=== PATIENT | female | born 1990 | race Caucasian/White ===

== ENCOUNTER → 2020-01-30 14:14 | Outpatient (BNVA) | payer OTHER, SELFPAY | PROVIDERS: Visit Provider Physician Assistant | DX: E66.01 Morbid (severe) obesity due to excess calories (principal); Z68.43 Body mass index [BMI] 50.0-59.9, adult; F41.8 Other specified anxiety disorders; Z98.84 Bariatric surgery status | CPT/HCPCS: 99213 ==

== ENCOUNTER 2021-10-15 14:35 | Outpatient (REF) | payer OTHER, SELFPAY ==
--- NOTE | ~2021-10-15 | XR_ITS ---
EXAMINATION: XR LUMBOSACRAL SPINE CLINICAL INFORMATION: Low back pain. COMPARISON: None TECHNIQUE: AP and lateral views of the lumbar spine with coned down AP and lateral spot views of the lumbosacral junction. FINDINGS: 5 non-rib bearing lumbar type vertebral bodies are seen. Mild convex left lumbar scoliosis with apex at L3. Normal sagittal alignment. There is likely facet arthropathy at L4-L5 and especially L5-S1. No joe or retrolisthesis. XR/XR lumbar spine 2-3V IMPRESSION: Mild convex left lumbar scoliosis with apex at L3. This could be positional or due to muscle spasm. Lower lumbar facet arthropathy.
== END 2021-10-15 14:36 | disposition home or self-care (01) ==
LOC: HO.HMGCX 14:35
PROVIDERS: PCP Internal Medicine; Visit Provider Internal Medicine
DX: M54.50 Low back pain, unspecified (principal)
CPT/HCPCS: 72100

== ENCOUNTER → 2022-03-02 14:13 | Outpatient (BNVA) | payer OTHER, SELFPAY | PROVIDERS: PCP Internal Medicine; Visit Provider Advanced Practice Midwife | DX: N92.6 Irregular menstruation, unspecified (principal); Z20.2 Contact with and (suspected) exposure to infections with a predominantly sexual mode of transmission | CPT/HCPCS: 99202 ==

== ENCOUNTER 2022-11-30 09:41 | Outpatient (AMB) | payer OTHER, SELFPAY ==
[2022-11-30 10:32] VITALS: BP 120/62; BMI 57.8
--- NOTE | 2022-11-30 10:32 | MHC.OFFVIS ---
Intake Vital Signs 11/30/22 10:32 Height 5 ft 4 in Weight 337 lb BMI 57.8 BP 120/62 Intake Visit Reasons: Irregular menses Intake Note: The patient agreed to use of a vice president medical affairs during this encounter. Scribed for FABI Cox by Larissa Yusuf vice president medical affairs, on 11/30/2022 at 10:50 am EST. Director Part Required: No Information Interpreted: non-clinical & clinical Pediatric Immunologist: Pediatric Immunologist Present Accompanied by: Mother Allergies amoxicillin [AMOXICILLIN] Allergy (Unknown, Unverified 11/30/22 10:33) ABD PAIN carbamazepine [From TEGRETOL] Allergy (Unknown, Unverified 11/30/22 10:33) RASH imipramine [IMIPRAMINE] Allergy (Unknown, Unverified 11/30/22 10:33) SEIZURE, sz Is last menstrual period known: Yes HPI HPI Comments History of Present Illness Details She is here for irregular menses with her mom and her service dog. She reports spotting in past months, with pelvic pain for past couple of months. Has not had normal or regular menses since age 16. Currently not sexually active in the last 2 years. She denies any contraindications to control such as: migraines with aura, history of DVT or pulmonary emboli, high blood pressure, liver disease, thrombolic disorders, Lupus, +LORETTA, or smoking. Denies hirsutism; admits occasional acne. Hx of seizures; last was 2006. Her mother asked if any medication (Provera) could cause a seizure because she believes the Imipramine caused seizures in the past. Labs and work up not completed from last fall. [facility] Medical History Annual physical exam Anxiety Depression with anxiety Dysmenorrhea Lower back pain Morbid obesity Obesity Rectal bleeding Seizures Surgical History S/p bilateral myringotomy with tube placement S/P laparoscopic sleeve gastrectomy Family History Father Hypertension Diabetes Heart failure Mother Hypertension Maternal Grandmother Cancer of kidney Maternal Grandfather Hypertension Social History Housing: House Patient Tobacco Use Status: Never used Tobacco e-Cigarette/Vaping Use: Never Used Second Hand Smoke Exposure: No service: No Current occupational status: unemployed Current occupational exposures/hazards: No Cognitive needs: No Hearing needs: No Vision needs: No Physical Exam Vital Signs: Last Vital Signs BP 120/62 11/30/22 10:32 BMI result Body Mass Index 57.8 Const General: cooperative, healthy appearing, comfortable, no acute distress, well developed, alert, awake and anxious Other: exam limited due to body habitus, anxious, tense with exam. Utilized breathing and relaxation skills with exam. General: Yes bladder normal to palpation External Female Exam: normal external appearance and normal appearance of the urethra Speculum Exam - Vagina: normal appearance of the vagina, normal palpation and normal vaginal discharge Speculum Exam - Cervix: normal appearance of the cervix Bimanual exam- vagina & uterus: normal bimanual exam, normal palpation and bladder normal to palpation Bimanual Exam- Adnexa, other: no masses Psych Other: anxious Appearance: well kempt Affect: normal affect Attitude: cooperative Thought process: Normal thought process present Assessment & Plan Assessment & Plan (1) Irregular menses: Code(s): N92.6 - Irregular menstruation, unspecified Plan: Discussed: Advised to complete labs/US for workup. Weight can contribute to hormonal imbalance and a irregular cycling. Encouraged patient to sign up for patient portal. All of her questions and concerns were addressed to the best of my ability and shared decision making. She is agreeable to plan of care. (2) Pelvic pain: Code(s): R10.2 - Pelvic and perineal pain Plan: Pelvic US and lab work ordered. Follow up for results in person. BV testing and GC/CT panel done today. Await results and treat accordingly. (3) control counseling: Code(s): Z30.09 - Encounter for other general counseling and advice on contraception Plan: Consider Provera/BC for cycle for control will need a consult visit for medication use additionally. Provera is used to protect the endometrial lining and shed the lining, if not alternatively using control. (4) Anxiety: Comment: Follows up with a therapist. Code(s): F41.9 - Anxiety disorder, unspecified Orders: Orders Bacterial Vaginosis Panel Today N92.6 - Irregular menstruation, unspecified, R10.2 - Pelvic and perineal pain CT NG by PCR Today N92.6 - Irregular menstruation, unspecified, R10.2 - Pelvic and perineal pain Coding Level of Care Code Est Pt Level 4 (21932) Diagnoses Irregular menses N92.6 Pelvic pain R10.2 control counseling Z30.09 Anxiety F41.9
== END 2022-11-30 12:03 | disposition home or self-care (01) ==
LOC: HO.HWS 09:41
PROVIDERS: PCP Internal Medicine; Visit Provider Advanced Practice Midwife
DX: N92.6 Irregular menstruation, unspecified (principal); R10.2 Pelvic and perineal pain; Z30.09 Encounter for other general counseling and advice on contraception; F41.9 Anxiety disorder, unspecified
CPT/HCPCS: 99214

== ENCOUNTER 2022-11-30 09:41 | Outpatient (REF) | payer OTHER, SELFPAY | END 2022-11-30 09:42 | disposition home or self-care (01) | LOC: HO.LAB 09:41 | PROVIDERS: PCP Internal Medicine; Visit Provider Advanced Practice Midwife | DX: N92.6 Irregular menstruation, unspecified (principal); R10.2 Pelvic and perineal pain; F41.9 Anxiety disorder, unspecified | CPT/HCPCS: 99212 ==

== ENCOUNTER 2022-11-30 11:04 | Outpatient (REF) | payer OTHER, SELFPAY | END 2022-11-30 11:05 | disposition home or self-care (01) | LOC: HO.LNP 11:04 | PROVIDERS: Visit Provider Advanced Practice Midwife | DX: Z13.89 Encounter for screening for other disorder (principal) ==

== ENCOUNTER 2022-11-30 11:42 | Outpatient (REF) | payer OTHER, SELFPAY ==
[2022-12-01 09:46] LABS: CT PCR NOT DETECTED (Not Detect.); NG PCR NOT DETECTED (Not Detect.)
[2022-12-01 11:45] LABS: BV Int Neg Control Negative (Negative); BV Int Pos Control Positive (Positive)
== END 2022-11-30 11:43 | disposition home or self-care (01) ==
LOC: HO.LAB 11:42
PROVIDERS: Advanced Practice Midwife; PCP Internal Medicine; Visit Provider Internal Medicine
DX: N92.6 Irregular menstruation, unspecified (principal); R10.2 Pelvic and perineal pain
CPT/HCPCS: 0353U; 87480; 87510; 87660

== ENCOUNTER 2023-01-02 14:10 | Outpatient (REF) | payer OTHER, SELFPAY ==
--- NOTE | ~2023-01-02 | US_ITS ---
EXAMINATION: US PELVIS CLINICAL INFORMATION: Irregular menses; the last menstrual period is uncertain. COMPARISON: None available. TECHNIQUE: Ultrasound of the pelvis is performed using both transabdominal and transvaginal transducers along with Doppler. Transvaginal imaging is performed due to inadequate visualization transabdominally. FINDINGS: Uterus: The uterus is anteverted and measures 6.5 x 3.2 x 3.9 cm. Nabothian cysts are seen within the cervix. The double wall endometrial thickness is 1.1 mm. The endometrial stripe is heterogeneous in echotexture. The uterus is smooth in contour and has normal myometrial echogenicity. No visible fibroid. Adnexa: Both ovaries are visualized. There is normal color flow to the adnexa. There is no ovarian torsion. There is no pelvic ascites or fluid collection. Right ovary measures 2.6 x 2.0 x 2.6 cm, volume 6.9 mL. Left ovary measures 3.4 x 2.5 x 3.0 cm, volume 13.3 mL. The left ovary contains a 1.2 cm dominant, simple follicle, which requires no imaging follow-up. US/US pelvic and transvaginal IMPRESSION: 1. Nabothian cysts are seen within the cervix. 2. Otherwise, unremarkable examination.
== END 2023-01-02 14:11 | disposition home or self-care (01) ==
LOC: HO.US 14:10
PROVIDERS: PCP Internal Medicine; Visit Provider Advanced Practice Midwife
DX: N92.6 Irregular menstruation, unspecified (principal)
CPT/HCPCS: 76830; 76856

== ENCOUNTER 2023-01-15 12:25 | Outpatient (REF) | payer OTHER, SELFPAY ==
[2023-01-15 14:21] LABS: Thyroid Stimulating Hormone 1.11 uIU/mL (0.32-4.0)
[2023-01-16 03:42] LABS: Syphilis Screen Nonreactive (Nonreactive)
[2023-01-16 05:33] LABS: HBc Num1 0.08 S/CO (0.00-0.79); HIV AB/AG Nonreactive (Nonreactive); HIV Num 1 0.09 S/CO (0.00-0.99); Hepatitis B Core Antibody Nonreactive (Nonreactive); ~HepC Num1 0.04 S/CO (0.00-0.79); ~Hepatitis C Antibody Nonreactive (Nonreactive)
[2023-01-17 07:38] LABS: DHEA Sulfate 206 mcg/dL (14-349); Prolactin 11.5 ng/mL
[2023-01-19 19:33] LABS: Testosterone, Free 2.8 pg/mL (0.1-6.4); Testosterone, Total 20 ng/dL (2-45)
== END 2023-01-15 12:26 | disposition home or self-care (01) ==
LOC: HO.LAB 12:25
PROVIDERS: PCP Internal Medicine; Visit Provider Advanced Practice Midwife
DX: Z11.4 Encounter for screening for human immunodeficiency virus [HIV] (principal); Z20.2 Contact with and (suspected) exposure to infections with a predominantly sexual mode of transmission; N92.6 Irregular menstruation, unspecified
CPT/HCPCS: 36415; 82627; 83498; 84146; 84402; 84403; 84443; 86704; 86780; 86803; 87389

== ENCOUNTER 2023-02-02 11:38 | Outpatient (AMB) | payer OTHER, SELFPAY ==
--- NOTE | 2023-02-02 11:38 | MHC.OFFVIS ---
Intake Intake Visit Reasons: Tv ultra sound /labs follow up Intake Note: The patient agreed to use of a medical claims representative during this encounter. Scribed for FABI Cox by Larissa Yusuf medical claims representative, on 02/02/2023 EST. Allergies amoxicillin [AMOXICILLIN] Allergy (Unknown, Unverified 02/02/23 11:39) ABD PAIN carbamazepine [From TEGRETOL] Allergy (Unknown, Unverified 02/02/23 11:39) RASH imipramine [IMIPRAMINE] Allergy (Unknown, Unverified 02/02/23 11:39) SEIZURE, sz HPI HPI Comments History of Present Illness Details Telehealth visit 12:28 pm -12:49 pm. Phone Call due to Covid-19 Pandemic. Pt denied video. She presents via phone to discuss PCOS lab work due to irregular menses. Reports in the past visit she had sporadic irregular menses which can vary from 1-3 months and might have a menses lasting 1-2 days. Her last menses was early November 2022. Currently not sexually active; denies any risk to . Hx of extreme anxiety disorder which affects her ability to go outside often and is limited to outside exercise options. She takes her dog outside in the backyard but only for a couple of minutes at a time then comes back inside because she is afraid to interact with the neighbors. Reports she is not eating healthy and her goal is to lose weight. Reports she is currently struggling emotionally, has the same therapist since age 14. She denies any contraindications to control such as: migraines with aura, history of DVT or pulmonary emboli, high blood pressure, liver disease, thrombolic disorders, Lupus, +LORETTA, or smoking. [facility] Medical History Adult BMI 60.0-69.9 kg/sq m Annual physical exam Anxiety Lower back pain Dysmenorrhea Rectal bleeding Obesity Morbid obesity Depression with anxiety Seizures Surgical History S/p bilateral myringotomy with tube placement S/P laparoscopic sleeve gastrectomy Family History Father Hypertension Diabetes Heart failure Mother Hypertension Maternal Grandmother Cancer of kidney Maternal Grandfather Hypertension Social History Housing: House Patient Tobacco Use Status: Never used Tobacco e-Cigarette/Vaping Use: Never Used Second Hand Smoke Exposure: No service: No Current occupational status: unemployed Current occupational exposures/hazards: No Cognitive needs: No Hearing needs: No Vision needs: No Physical Exam Const General: cooperative, healthy appearing, comfortable, no acute distress, well developed, alert and awake Assessment & Plan Assessment & Plan (1) Encounter to discuss test results: Code(s): Z71.2 - Person consulting for explanation of examination or test findings Plan: Discussed: PCOS lab work; normal. All of her questions and concerns were addressed to the best of my ability and shared decision making. She is agreeable to plan of care. (2) Adult BMI 60.0-69.9 kg/sq m: Code(s): Z68.44 - Body mass index [BMI] 60.0-69.9, adult Plan: Discussed role of weight and effects on hormones and cycle control. Benefits of weight loss, in small strides. Maintaining a healthy lifestyle, including a well balanced diet, and routine exercise. Encouraged to take her time getting to her healthy weight goals and to go outdoors, or outside activities for 2 hours/day, when she is able to do so. Suggested indoor exercises: including chair-yoga exercises, floor routines on a mat, take breaks and move around the house often. (3) Anxiety: Comment: Follows up with a therapist. Code(s): F41.9 - Anxiety disorder, unspecified Plan: Advised to try not to stress herself. Recommend fresh air for mental wellness; discussed benefits. (4) control counseling: Code(s): Z30.09 - Encounter for other general counseling and advice on contraception Plan: Reviewed use, side effects and warnings, including ACHES. Use of provera, reason, risks/benefits-protect endometrium, correction prevention of possible abnormal cellular changes that can lead to precancer/cancer development with chronic irregular/anovulatory cycles. Monitor her bleeding and contact the office with any concerns. She was instructed to go to ER if she develops loss of vision, severe headache that does not resolve, chest pain, difficulty breathing, abdominal pain, or pain or tenderness in extremity. Call the office with any concerns. Rx for Provera (10 mg for 10 days) sent to pharmacy. RTO med check in 6 months-pt. preferred timeframe, encouraged pap and annual to be updated next years. Medications: New medroxyprogesterone (Provera) may repeat use if no menses in 1-3 months 10 mg PO DAILY 60 tabs 0RF 10 days Telehealth Telehealth Location of provider rendering services: practice address Location of patient: address on file Patient Identification confirmed using: Name, : Yes Telehealth method: voice only Patient verbally consented to treatment: Yes Patient verbally consented to billing insurance company: Yes Patient informed of any privacy concerns related to visit: Yes Coding Level of Care Code Tele Est Pt Level 3 (23401) Diagnoses Encounter to discuss test results Z71.2 Adult BMI 60.0-69.9 kg/sq m Z68.44 Anxiety F41.9 control counseling Z30.09 Time Spent (min) 21 Comment USE code [id number] for audio visit
== END 2023-02-02 15:06 | disposition home or self-care (01) ==
LOC: HO.HWS 11:38
PROVIDERS: PCP Internal Medicine; Visit Provider Advanced Practice Midwife
DX: Z71.2 Person consulting for explanation of examination or test findings (principal); Z68.44 Body mass index [BMI] 60.0-69.9, adult; F41.9 Anxiety disorder, unspecified; Z30.09 Encounter for other general counseling and advice on contraception
CPT/HCPCS: 99213

== ENCOUNTER → 2023-02-02 11:38 | Outpatient (BNVA) | payer OTHER, SELFPAY | PROVIDERS: PCP Internal Medicine; Visit Provider Advanced Practice Midwife ==

== ENCOUNTER 2023-06-15 10:30 | Outpatient (AMB) | payer OTHER, SELFPAY ==
--- NOTE | 2023-06-15 10:31 | A.OFFVIS_ITS ---
Intake Intake Visit Reasons: discuss concerns and next steps Geographic Information System Analyst Required: No Information Interpreted: non-clinical & clinical Allergies amoxicillin [AMOXICILLIN] Allergy (Unknown, Unverified 06/15/23 10:32) ABD PAIN carbamazepine [From TEGRETOL] Allergy (Unknown, Unverified 06/15/23 10:32) RASH imipramine [IMIPRAMINE] Allergy (Unknown, Unverified 06/15/23 10:32) SEIZURE, sz HPI HPI Comments History of Present Illness Details [facility] visit 10:59-11:10. Phone call due to Covid 19 Pandemic. I spent 11 minutes speaking with the patient on the phone plus an additional 5 minutes reviewing the chart and 5 minutes updating the medical record for a total of 21minutes. Patient had declined of video chat and only desired a phone call. Patient presents via phone to discuss: Patient wants to discuss her concerns in the next step in her care. Last seen January 2023 is a history of PCOS and irregular menses, at that visit she was given intermittent progesterone for management and was advised a six-month follow-up recheck and Pap. She is unable to complete the Pap smear due to severe exam anxiety. Last Pap 2018. Patient does not remember her last menses, notes in January document it was in November 2022. She is not sexually active. She reports not taking any Provera at her last visit due to her worries about a side effects that could lead to complications such as visual loss. 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 She is interested in using something but is unable to move forward at this time with a plan to treat her amenorrhea. She reports struggling to lose weight she has in a very hard situation at her home with a toxic environment that she can not change. She does have a therapist she can talk to. She admits struggling with weight loss and feels it is hard to do anything. [facility] Medical History Adult BMI 60.0-69.9 kg/sq m Annual physical exam Anxiety Lower back pain Dysmenorrhea Rectal bleeding Obesity Morbid obesity Depression with anxiety Seizures Surgical History S/p bilateral myringotomy with tube placement S/P laparoscopic sleeve gastrectomy Family History Father Hypertension Diabetes Heart failure Mother Hypertension Maternal Grandmother Cancer of kidney Maternal Grandfather Hypertension Social History Housing: House Patient Tobacco Use Status: Never used Tobacco e-Cigarette/Vaping Use: Never Used Second Hand Smoke Exposure: No service: No Current occupational status: unemployed Current occupational exposures/hazards: No Cognitive needs: No Hearing needs: No Vision needs: No Assessment & Plan Assessment & Plan (1) Morbid obesity: Code(s): E66.01 - Morbid (severe) obesity due to excess calories (2) Amenorrhea: Code(s): N91.2 - Amenorrhea, unspecified (3) PCOS (polycystic ovarian syndrome): Code(s): E28.2 - Polycystic ovarian syndrome Plan Discussed: Concerns for a long history of irregular cycle pattern leading to amenorrhea, risk of anovulatory cycles overall in the long run can lead to abnormal changes in the uterine lining which can lead to uterine atypia and possible uterine cancer. Hormones can be protected to avoid this. Options to include control or intermittent use of progesterone, incl: implant in the uterus, or arm. Given physical exam is difficult, that is not likely not the best option for an IUD. Rx changed to intermittant Prometrium and shortened the dose length, possibly that would be a more comfortable option for usage of hormone. Encouraged to continue with talk therapy. Advised to follow up for an annual exam in person. All of her questions and concerns were addressed to the best of my ability and shared decision making. She was given the opportunity to ask questions and to discuss the plan. She is agreeable to consider her options. This note is constructed using voice recognition software. While every effort has been made to ensure accuracy, sunglass clip attacher errors may have been included. Medications: New progesterone micronized (Prometrium) repeat if no menses in 2-3 months 200 mg PO BEDTIME 5 days 5 caps 5RF Discontinued medroxyprogesterone (Provera) may repeat use if no menses in 1-3 months Discontinued Reason: Duplicate 10 mg PO DAILY 10 days 60 tabs 0RF Telehealth Telehealth Location of provider rendering services: practice address Location of patient: address on file Patient Identification confirmed using: Name, : Yes Telehealth method: voice only Patient verbally consented to treatment: Yes Patient verbally consented to billing insurance company: Yes Patient informed of any privacy concerns related to visit: Yes Coding Level of Care Code Tele Est Pt Level 3 (19472) Diagnoses Morbid obesity E66.01 Amenorrhea N91.2 PCOS (polycystic ovarian syndrome) E28.2
== END 2023-06-15 11:41 | disposition home or self-care (01) ==
LOC: HO.HWS 10:30
PROVIDERS: PCP Internal Medicine; Visit Provider Advanced Practice Midwife
DX: E28.2 Polycystic ovarian syndrome (principal); E66.01 Morbid (severe) obesity due to excess calories
CPT/HCPCS: 99213

== ENCOUNTER → 2023-06-15 10:30 | Outpatient (BNVA) | payer OTHER, SELFPAY | PROVIDERS: PCP Internal Medicine; Visit Provider Advanced Practice Midwife ==

== ENCOUNTER 2024-01-01 11:31 | Outpatient (AMB) | payer OTHER, SELFPAY ==
--- NOTE | 2024-01-01 11:35 | A.OFFVIS_ITS ---
VS Expanded 01/01/24 11:44 Height 5 ft 4 in Weight 374 lb BMI 64.2 Intake Visit Reasons: (TV) PO LSG 06/19/18 Allergies amoxicillin [AMOXICILLIN] Allergy (Unknown, Unverified 06/15/23 10:32) ABD PAIN carbamazepine [From TEGRETOL] Allergy (Unknown, Unverified 06/15/23 10:32) RASH imipramine [IMIPRAMINE] Allergy (Unknown, Unverified 06/15/23 10:32) SEIZURE, sz HPI Comments Details: 33yo female s/p LSG 06/19/[address] Espinoza. Has not been seen since 01/30/2020 at which time weight/BMI was 292/50.9. Pt reports falling off due to serious life events , spiraling. Used food as a coping mechanism. Still struggling with consistency, cravings, eating out of boredom/loneliness. Sees a therapist regularly. Uses [employer]. Exercise- bought a [employer], does not feel comfortable going to a gym, has some exercise equipment at a friend's house [facility] Medical History Adult BMI 60.0-69.9 kg/sq m Annual physical exam Anxiety Lower back pain Dysmenorrhea Rectal bleeding Obesity Morbid obesity Depression with anxiety Seizures Surgical History S/p bilateral myringotomy with tube placement S/P laparoscopic sleeve gastrectomy Family History Father Hypertension Diabetes Heart failure Mother Hypertension Maternal Grandmother Cancer of kidney Maternal Grandfather Hypertension Social History Housing: House Patient Tobacco Use Status: Never used Tobacco e-Cigarette/Vaping Use: Never Used Second Hand Smoke Exposure: No service: No Current occupational status: unemployed Current occupational exposures/hazards: No Cognitive needs: No Hearing needs: No Vision needs: No Telehealth Telehealth Telehealth Platform: Telephone Location of provider rendering services: other Location of patient: address on file Patient Identification confirmed using: Name, : Yes Telehealth method: voice only Patient verbally consented to treatment: Yes Patient verbally consented to billing insurance company: Yes Patient informed of any privacy concerns related to visit: Yes Minutes spent on Phone/Video with Pt.: 18 Assessment & Plan Assessment & Plan (1) Morbid obesity: Code(s): E66.01 - Morbid (severe) obesity due to excess calories Category: Medical (2) History of sleeve gastrectomy: Code(s): Z90.3 - Acquired absence of stomach [part of] Category: Surgical Plan Meal plan to include 3 [employer]life shakes, 1 meal protein/veg 8f/8f and Chinese yogurt. Discussed taking 2 hours to finish shakes. She declines BH appt at this time. Will work on restarting exercise, goal 30min/day 5x/week for now. Sent home video workout options. RTC 6 weeks, pt encouraged to text me weekly with weight updates and with any questions or concerns. I spent a total of 30 minutes reviewing/updating records, examining the patient and counseling the patient on weight management as detailed above.
[2024-01-01 11:44] VITALS: BMI 64.2
== END 2024-01-01 12:09 | disposition home or self-care (01) ==
LOC: HO.HBS 11:32
PROVIDERS: PCP Internal Medicine; Visit Provider Physician Assistant Surgical
DX: E66.01 Morbid (severe) obesity due to excess calories (principal); Z90.3 Acquired absence of stomach [part of]
CPT/HCPCS: 99214

== ENCOUNTER → 2024-01-01 11:31 | Outpatient (BNVA) | payer OTHER, SELFPAY | PROVIDERS: PCP Internal Medicine; Visit Provider Physician Assistant Surgical ==

== ENCOUNTER 2024-02-06 11:07 | Outpatient (AMB) | payer OTHER, SELFPAY ==
--- NOTE | 2024-02-06 11:05 | MHC.OFFVISWM ---
VS Expanded 02/06/24 11:08 Height 5 ft 4 in Weight 357 lb BMI 61.3 Intake Visit Reasons: TELEPHONE PO LSG 06/19/18 Allergies amoxicillin [AMOXICILLIN] Allergy (Unknown, Unverified 06/15/23 10:32) ABD PAIN carbamazepine [From TEGRETOL] Allergy (Unknown, Unverified 06/15/23 10:32) RASH imipramine [IMIPRAMINE] Allergy (Unknown, Unverified 06/15/23 10:32) SEIZURE, sz Medication List - Last Reconciled 02/06/24 by REED Govea progesterone micronized (Prometrium) 200 mg PO BEDTIME 5 days HPI Comments Details: This?is a?33?yo female who is s/p LSG 06/19/2018. Weight at last visit on 01/01/2024 was 374 pounds with a BMI of 64.2, weight today is 357 pounds, representing a 18 pound weight loss with a BMI today of 61.3.? No complaints of nausea, emesis, abdominal pain or reflux, or constipation. Pt reports difficulty with transportation/no vehicle, has been sick with a cold, family friend with health issues. Has good days and bad days with meal plan. Sometimes doesn't eat all day because not thinking about it. Did get a new van over the weekend. Present meal plan includes: 3 [employer]life shakes, 1 meal protein/veg 8f/8f and Malagasy yogurt Exercise routine includes: 30min/day 5x/week encouraged at last visit [facility] Medical History Adult BMI 60.0-69.9 kg/sq m Annual physical exam Anxiety Lower back pain Dysmenorrhea Rectal bleeding Obesity Morbid obesity Depression with anxiety Seizures Surgical History S/p bilateral myringotomy with tube placement S/P laparoscopic sleeve gastrectomy Family History Father Hypertension Diabetes Heart failure Mother Hypertension Maternal Grandmother Cancer of kidney Maternal Grandfather Hypertension Social History Housing: House Patient Tobacco Use Status: Never used Tobacco e-Cigarette/Vaping Use: Never Used Second Hand Smoke Exposure: No service: No Current occupational status: unemployed Current occupational exposures/hazards: No Cognitive needs: No Hearing needs: No Vision needs: No Telehealth Telehealth Telehealth Platform: Telephone Location of provider rendering services: other Location of patient: address on file Patient Identification confirmed using: Name, : Yes Telehealth method: voice only Patient verbally consented to treatment: Yes Patient verbally consented to billing insurance company: Yes Patient informed of any privacy concerns related to visit: Yes Minutes spent on Phone/Video with Pt.: 14 Assessment & Plan Assessment & Plan (1) History of sleeve gastrectomy: Code(s): Z90.3 - Acquired absence of stomach [part of] Category: Surgical (2) Adult BMI 60.0-69.9 kg/sq m: Code(s): Z68.44 - Body mass index [BMI] 60.0-69.9, adult Category: Medical Plan Pt doing very well on current meal plan, congratulated her on her progress despite many life stressors. Pt sounds more upbeat today compared to last visit as well. She will continue same meal plan. Will order labs at next visit. Encouraged her to reach out between appots with any questions. RTC 6w phone appt. I spent a total of 30 minutes reviewing/updating records, examining the patient and counseling the patient on weight management as detailed above.
[2024-02-06 11:08] VITALS: BMI 61.3
== END 2024-02-06 11:29 | disposition home or self-care (01) ==
LOC: HO.HBS 11:07
PROVIDERS: PCP Internal Medicine; Visit Provider Physician Assistant Surgical
DX: E66.813 Obesity, class 3 (principal); Z68.44 Body mass index [BMI] 60.0-69.9, adult; Z90.3 Acquired absence of stomach [part of]; Z98.84 Bariatric surgery status
CPT/HCPCS: 98967

== ENCOUNTER → 2024-02-06 11:07 | Outpatient (BNVA) | payer OTHER, SELFPAY | PROVIDERS: PCP Internal Medicine; Visit Provider Physician Assistant Surgical ==

== ENCOUNTER 2024-03-05 12:28 | Outpatient (AMB) | payer OTHER, SELFPAY ==
--- NOTE | 2024-03-05 11:58 | MHC.OFFVISWM ---
VS Expanded 03/05/24 12:02 Height 5 ft 4 in Weight 367 lb BMI 63.0 Intake Visit Reasons: TELEPHONE PO LSG 06/19/18 Allergies amoxicillin [AMOXICILLIN] Allergy (Unknown, Unverified 06/15/23 10:32) ABD PAIN carbamazepine [From TEGRETOL] Allergy (Unknown, Unverified 06/15/23 10:32) RASH imipramine [IMIPRAMINE] Allergy (Unknown, Unverified 06/15/23 10:32) SEIZURE, sz Medication List - Last Reconciled 03/05/24 by REED Govea progesterone micronized (Prometrium) 200 mg PO BEDTIME 5 days HPI Comments Details: This?is a?33?yo female who is s/p LSG 06/19/2018. Weight at last visit on 02/06/2024 was 357 pounds with a BMI of 61.3, weight today is 367 pounds, representing a 10 pound weight gain with a BMI today of 63.? No complaints of nausea, emesis, abdominal pain or reflux, or constipation. Pt feels like things have gone downhill, it's been nonstop and chaotic, I haven't had a chance to center myself. Was dealing with her emotions and ended up binge eating. I wish I could have been stronger. Present meal plan includes: 3 Fairlife shakes, 1 meal protein/veg 8f/8f and Chinese yogurt Exercise routine includes: 30min/day 5x/week encouraged at last visit [facility] Medical History Adult BMI 60.0-69.9 kg/sq m Annual physical exam Anxiety Lower back pain Dysmenorrhea Rectal bleeding Obesity Morbid obesity Depression with anxiety Seizures Surgical History S/p bilateral myringotomy with tube placement S/P laparoscopic sleeve gastrectomy Family History Father Hypertension Diabetes Heart failure Mother Hypertension Maternal Grandmother Cancer of kidney Maternal Grandfather Hypertension Social History Housing: House Patient Tobacco Use Status: Never used Tobacco e-Cigarette/Vaping Use: Never Used Second Hand Smoke Exposure: No service: No Current occupational status: unemployed Current occupational exposures/hazards: No Cognitive needs: No Hearing needs: No Vision needs: No Telehealth Telehealth Telehealth Platform: Telephone Location of provider rendering services: other Location of patient: address on file Patient Identification confirmed using: Name, : Yes Telehealth method: voice only Patient verbally consented to treatment: Yes Patient verbally consented to billing insurance company: Yes Patient informed of any privacy concerns related to visit: Yes Minutes spent on Phone/Video with Pt.: 16 Assessment & Plan Assessment & Plan (1) Adult BMI 60.0-69.9 kg/sq m: Code(s): Z68.44 - Body mass index [BMI] 60.0-69.9, adult Category: Medical (2) History of sleeve gastrectomy: Code(s): Z90.3 - Acquired absence of stomach [part of] Category: Surgical Plan Offered appt with provider to help with processing emotions/tactics for avoiding binge eating. Pt declined at this time, does have a community therapist. Discussed goal of getting back on meal plan more consistently, pt is hopeful next few weeks will be less stressful. She finds these conversations helpful in trying to be mindful and stay on track. RTC 6-8 weeks. I spent a total of 30 minutes reviewing/updating records, examining the patient and counseling the patient on weight management as detailed above.
[2024-03-05 12:02] VITALS: BMI 63.0
== END 2024-03-05 12:59 | disposition home or self-care (01) ==
LOC: HO.HBS 12:28
PROVIDERS: PCP Internal Medicine; Visit Provider Physician Assistant Surgical
DX: E66.813 Obesity, class 3 (principal); Z68.44 Body mass index [BMI] 60.0-69.9, adult; Z90.3 Acquired absence of stomach [part of]; Z98.84 Bariatric surgery status
CPT/HCPCS: 98967

== ENCOUNTER 2024-04-28 12:52 | Outpatient (AMB) | payer OTHER, SELFPAY ==
--- NOTE | 2024-04-28 12:32 | A.OFFVIS_ITS ---
VS Expanded 04/28/24 12:34 Height 5 ft 4 in Weight 361 lb BMI 62.0 Intake Visit Reasons: TELEPHONE PO LSG 06/19/18 Allergies amoxicillin [AMOXICILLIN] Allergy (Unknown, Unverified 06/15/23 10:32) ABD PAIN carbamazepine [From TEGRETOL] Allergy (Unknown, Unverified 06/15/23 10:32) RASH imipramine [IMIPRAMINE] Allergy (Unknown, Unverified 06/15/23 10:32) SEIZURE, sz HPI Comments Details: This?is a?33?yo female who is s/p LSG 06/19/2018. Weight at last visit on 03/05/2024 was 367 pounds with a BMI of 63, weight today is 361 pounds, representing a 6 pound weight loss with a BMI today of 62.? No complaints of nausea, emesis, abdominal pain or reflux, or constipation. Continues to care for her grandfather at home. I have not kept up with the protein shakes like I should. My life is a circus. Present meal plan includes: 3 Fairlife shakes, 1 meal protein/veg 8f/8f and Khmer yogurt Exercise routine includes: 30min/day 5x/week encouraged at last visit [facility] Medical History Adult BMI 60.0-69.9 kg/sq m Annual physical exam Anxiety Lower back pain Dysmenorrhea Rectal bleeding Obesity Morbid obesity Depression with anxiety Seizures Surgical History S/p bilateral myringotomy with tube placement S/P laparoscopic sleeve gastrectomy Family History Father Hypertension Diabetes Heart failure Mother Hypertension Maternal Grandmother Cancer of kidney Maternal Grandfather Hypertension Social History Housing: House Patient Tobacco Use Status: Never used Tobacco e-Cigarette/Vaping Use: Never Used Second Hand Smoke Exposure: No service: No Current occupational status: unemployed Current occupational exposures/hazards: No Cognitive needs: No Hearing needs: No Vision needs: No Telehealth Telehealth Telehealth Platform: Telephone Location of provider rendering services: other Location of patient: address on file Patient Identification confirmed using: Name, : Yes Telehealth method: voice only Patient verbally consented to treatment: Yes Patient verbally consented to billing insurance company: Yes Patient informed of any privacy concerns related to visit: Yes Minutes spent on Phone/Video with Pt.: 19 Assessment & Plan Assessment & Plan (1) History of sleeve gastrectomy: Code(s): Z90.3 - Acquired absence of stomach [part of] Category: Surgical (2) Adult BMI 60.0-69.9 kg/sq m: Code(s): Z68.44 - Body mass index [BMI] 60.0-69.9, adult Category: Medical Plan She reports she appreciates the calls and accountability. We discussed that she still did lose weight since last OV and perfection is not necessary for progress. Offered the option of changes to meal plan to make it easier to follow' pt feels her busy schedule makes it difficult to follow a plan consistently no matter what is on the plan. Asks about Premier protein shakes, okay to use in any flavor. Can add PB2 to shake to change flavor. Wants to try doing a shake-only plan, 5/day; can try this. Plans to make more of an effort to drink shakes slowly. RTC 2 months. I spent a total of 30 minutes reviewing/updating records, examining the patient and counseling the patient on weight management as detailed above.
[2024-04-28 12:34] VITALS: BMI 62.0
== END 2024-04-28 12:53 | disposition home or self-care (01) ==
LOC: HO.HBS 12:52
PROVIDERS: PCP Internal Medicine; Visit Provider Physician Assistant Surgical
DX: E66.813 Obesity, class 3 (principal); Z68.44 Body mass index [BMI] 60.0-69.9, adult; Z90.3 Acquired absence of stomach [part of]; Z98.84 Bariatric surgery status
CPT/HCPCS: 98967

== ENCOUNTER 2024-06-16 09:30 | Outpatient (AMB) | payer OTHER, SELFPAY ==
--- NOTE | 2024-06-16 09:13 | MHC.OFFVISWM ---
VS Expanded 06/16/24 09:27 Height 5 ft 4 in Weight 363 lb BMI 62.3 Intake Visit Reasons: TELEPHONE PO LSG 06/19/18 Allergies amoxicillin [AMOXICILLIN] Allergy (Unknown, Unverified 06/15/23 10:32) ABD PAIN carbamazepine [From TEGRETOL] Allergy (Unknown, Unverified 06/15/23 10:32) RASH imipramine [IMIPRAMINE] Allergy (Unknown, Unverified 06/15/23 10:32) SEIZURE, sz Medication List - Last Reconciled 06/16/24 by REED Govea progesterone micronized (Prometrium) 200 mg PO BEDTIME 5 days HPI Comments Details: This?is a?33?yo female who is s/p LSG 06/19/2018. Weight at last visit 2mo ago was 361 pounds with a BMI of 62, weight today is 363 pounds, representing a 6 pound weight loss with a BMI today of 62.3.? No complaints of nausea, emesis, abdominal pain or reflux, or constipation. Continues to care for her grandfather at home. He had been sick/more confused, was hospitalized for multiple issues. He is now home on hospice. Also having car issues, $2000 bill. Having issues with a close friend, hot and cold and feeling isolated but also having more social anxiety from frequent interactions and outings to the hospital. She reports she either wasn't eating so I was maintaining the weight or eating comfort food. She reports she would try to make conscious choices but sometimes that was difficult in the moment. Feels that her life lacks stability. Present meal plan includes: 3 Fairlife shakes, 1 meal protein/veg 8f/8f and Luxembourgish yogurt had wanted to try 5 shakes/day after last visit Exercise routine includes: 30min/day 5x/week encouraged at last visit [facility] Medical History Adult BMI 60.0-69.9 kg/sq m Annual physical exam Anxiety Lower back pain Dysmenorrhea Rectal bleeding Obesity Morbid obesity Depression with anxiety Seizures Surgical History S/p bilateral myringotomy with tube placement S/P laparoscopic sleeve gastrectomy Family History Father Hypertension Diabetes Heart failure Mother Hypertension Maternal Grandmother Cancer of kidney Maternal Grandfather Hypertension Social History Housing: House Patient Tobacco Use Status: Never used Tobacco e-Cigarette/Vaping Use: Never Used Second Hand Smoke Exposure: No service: No Current occupational status: unemployed Current occupational exposures/hazards: No Cognitive needs: No Hearing needs: No Vision needs: No Telehealth Telehealth Telehealth Platform: Telephone Location of provider rendering services: other Location of patient: address on file Patient Identification confirmed using: Name, : Yes Telehealth method: voice only Patient verbally consented to treatment: Yes Patient verbally consented to billing insurance company: Yes Patient informed of any privacy concerns related to visit: Yes Minutes spent on Phone/Video with Pt.: 28 Assessment & Plan Assessment & Plan (1) History of sleeve gastrectomy: Code(s): Z90.3 - Acquired absence of stomach [part of] Category: Surgical (2) Morbid obesity: Code(s): E66.01 - Morbid (severe) obesity due to excess calories Category: Medical Plan Once again offered our therapist to support as she cites the lack of support as a difficulty for her but pt declines at this time; she does have a community therapist. She spent much of the visit discussing her friendships/relationships that are not serving her. She is interested in bariatric cookbook in our office as well as other handouts so I will mail her copies. She wants to try shakes only again, 5x/day for some days. RTC 2 months. I spent a total of 45 minutes reviewing/updating records, examining the patient and counseling the patient on weight management as detailed above.
[2024-06-16 09:27] VITALS: BMI 62.3
--- OUTSIDE RECORDS SUMMARY | 2024-06-16 10:17 | XMS_ITS | Encounter Summary ---
Author Organization [facility] Address [address] [place] [phone] Phone Care Team Providers Care Child Care Team Lead Name Role Phone Unavailable Primary Care Provider Unavailabl e Encounter Details Date Type Department Care Team (Late st Contact Info) Description 12/07/2016 Conversion Encounter [facility] - [address] [address] Social History Tobacco Use Types Packs/Day Years Used Date Smoking Tobacco: Never Assessed Comments Unknown Sex and Gender Information Value Date Recorded Sex Assigned at Not on file Legal Sex Female 4:54 PM EDT Gender Identity Not on file Sexual Orientation Not on file documented as of this encounter Plan of Treatment Not on file documented as of this encounter Visit Diagnoses Not on filedocumented in this encounter
--- OUTSIDE RECORDS SUMMARY | 2024-06-16 10:17 | XMS_ITS | Clinical Summary ---
Author Organization [facility] Address [address] [place] [phone] Phone Care Team Providers Care Stretch Press Operator Name Role Phone Unavailable Primary Care Provider Unavailabl e Immunizations Immunization Administration Dates Next Due DTP 10/01/1997, 4,04/21/1993,02/03,1992 H1N1 03/16/2009 Hep B, ped/adol 04/21/1993,1992,1992 Hib (PRP-T) 12/15/1993, 3,02/03/1993,11/03 IPV 03/29/1994,02/03/1993,1992 MMR 10/01/1997,12/15/1993 Meningococcal Conj (Menactra) MCV4P 02/05/2008 OPV 10/01/1997 Td (adult) (MBL), 2 Lf tetan us toxoid, PF, adsorbed 03/07/2004 Tdap 02/05/2008 Varicella 02/05/2008,10/01/1997 Family History Relation Name Status Comments Father Alive Father: Alive a nd well, Nocturnal enuresis into adoles Maternal Grandfather Materna l uncle: Depression Mother Alive Mother: Migrain es Other Family history of Elevated cholesterol, Family history of Obesity, Family history of Diabetes mellitus Social History Tobacco Use Types Packs/Day Years Used Date Smoking Tobacco: Never Assessed Comments Unknown Sex and Gender Information Value Date Recorded Sex Assigned at Not on file Legal Sex Female 4:54 PM EDT Gender Identity Not on file Sexual Orientation Not on file Last Filed Vital Signs Vital Sign Reading Time Taken Comments Blood Pressure 146/90 02/05/2014 12:00 AM EDT Pulse 71 02/02/2014 12:00 AM EDT Temperature 37.1 ??C (98.8 ??F) 02/05/2014 12:00 AM E DT Respiratory Rate - - Oxygen Saturation - - Inhaled Oxygen Concentration - - Weight 123 kg (272 lb) 02/05/2014 12:00 AM EDT Height 161.3 cm (5' 3.5 ) 02/05/2014 12:00 AM ED T Body Mass Index 47.43 02/05/2014 12:00 AM EDT Plan of Treatment Health Maintenance Due Date Last Done Comments DTaP,Tdap,and Td Vaccines (7 - Td or Tdap) 02/04/2018 02/05/2008, 03/07/2004, 10/01/1997, Additional history exists Influenza Vaccines (#1) 2023 COVID-19 Vaccine ( season) 2023 Hepatitis B Vaccines Completed 04/21/1993, 1992, 1992 HIB Vaccines Completed 12/15/1993, 03/25, 02/03/1993, Additional history exists IPV Vaccines Completed 10/01/1997, 10/1993, 02/03/1993, Additional history exists MMR Vaccines Completed 10/01/1997, 12/15/1993 Meningococcal Vaccine Aged Out 02/05/2008 No deisy lnag eligible based on patient's age to complete this topic Varicella Vaccines Completed 02/05/2008, 10/01/1997 HPV Vaccines Aged Out No longer eligi ble based on patient's age to complete this topic Hepatitis A Vaccines Aged Out No long er eligible based on patient's age to complete this topic Men B Vaccine Aged Out No longer elig ible based on patient's age to complete this topic Pneumococcal Vaccine Aged Out No long er eligible based on patient's age to complete this topic
== END 2024-06-16 09:40 | disposition home or self-care (01) ==
LOC: HO.HBS 09:30
PROVIDERS: PCP Internal Medicine; Visit Provider Physician Assistant Surgical
DX: E66.813 Obesity, class 3 (principal); Z68.44 Body mass index [BMI] 60.0-69.9, adult; Z90.3 Acquired absence of stomach [part of]
CPT/HCPCS: 98016

== ENCOUNTER 2024-08-18 11:50 | Outpatient (AMB) | payer OTHER, SELFPAY ==
--- NOTE | 2024-08-18 11:30 | MHC.OFFVISWM ---
Intake Visit Reasons: TELEPHONE PO LSG 06/19/18 Allergies amoxicillin [AMOXICILLIN] Allergy (Unknown, Unverified 06/15/23 10:32) ABD PAIN carbamazepine [From TEGRETOL] Allergy (Unknown, Unverified 06/15/23 10:32) RASH imipramine [IMIPRAMINE] Allergy (Unknown, Unverified 06/15/23 10:32) SEIZURE, sz Medication List - Last Reconciled 08/18/24 by REED Govea progesterone micronized (Prometrium) 200 mg PO BEDTIME 5 days HPI Comments Details: This?is a?33?yo female who is s/p LSG 06/19/2018. Weight at last visit 2mo ago was 363 pounds; she is unsure of her weight today but thinks she has gained a bit.? No complaints of nausea, emesis, abdominal pain or reflux, or constipation. Unfortunately her grandfather has . I live in a very toxic house and it makes it really hard for me to be able to put myself first. [place] with binge eating, or not eating at all. Pt reports she continues to see her community therapist, also reports that she declines depression medications. Present meal plan includes: 3 Fairlife shakes, 1 meal protein/veg 8f/8f and Gabonese yogurt had wanted to try 5 shakes/day after last visit Exercise routine includes: 30min/day 5x/week encouraged at last visit [facility] Medical History Adult BMI 60.0-69.9 kg/sq m Annual physical exam Anxiety Lower back pain Dysmenorrhea Rectal bleeding Obesity Morbid obesity Depression with anxiety Seizures Surgical History S/p bilateral myringotomy with tube placement S/P laparoscopic sleeve gastrectomy Family History Father Hypertension Diabetes Heart failure Mother Hypertension Maternal Grandmother Cancer of kidney Maternal Grandfather Hypertension Social History Housing: House Patient Tobacco Use Status: Never used Tobacco e-Cigarette/Vaping Use: Never Used Second Hand Smoke Exposure: No service: No Current occupational status: unemployed Current occupational exposures/hazards: No Cognitive needs: No Hearing needs: No Vision needs: No Telehealth Telehealth Telehealth Platform: Telephone Location of provider rendering services: other Location of patient: address on file Patient Identification confirmed using: Name, : Yes Telehealth method: voice only Patient verbally consented to treatment: Yes Patient verbally consented to billing insurance company: Yes Patient informed of any privacy concerns related to visit: Yes Minutes spent on Phone/Video with Pt.: 16 Assessment & Plan Assessment & Plan (1) History of sleeve gastrectomy: Code(s): Z90.3 - Acquired absence of stomach [part of] Category: Surgical (2) Adult BMI 60.0-69.9 kg/sq m: Code(s): Z68.44 - Body mass index [BMI] 60.0-69.9, adult Category: Medical Plan Offered the option of GLP1 agonists, however pt reports she has some reservations and declines today. We had a long discussion about the risks and benefits of starting such a drug. RTC 3mo.
--- OUTSIDE RECORDS SUMMARY | 2024-08-18 14:10 | XMS_ITS | Clinical Summary ---
Author Organization [facility] Address [address] [place] [phone] Phone Care Team Providers Care Upholstery Auto Trimmer Name Role Phone Unavailable Primary Care Provider [...] Meningococcal Vaccine Aged Out 02/05/2008 No deisy lang eligible based on patient's age to complete [...]
--- OUTSIDE RECORDS SUMMARY | 2024-08-18 14:10 | XMS_ITS | Encounter Summary ---
Author Organization [facility] Address [address] [place] [phone] Phone Care Team Providers Care Respiratory Technician Name Role Phone Unavailable Primary Care Provider Unavailabl e Encounter Details Date Type Department Care Team (Late st Contact Info) Description 12/07/2016 Conversion Encounter [facility] - [address] [address] Social History Tobacco Use Types Packs/Day Years [...]
== END 2024-08-18 11:53 | disposition home or self-care (01) ==
LOC: HO.HBS 11:50
PROVIDERS: PCP Internal Medicine; Visit Provider Physician Assistant Surgical
DX: E66.01 Morbid (severe) obesity due to excess calories (principal); Z68.44 Body mass index [BMI] 60.0-69.9, adult; E66.813 Obesity, class 3; Z90.3 Acquired absence of stomach [part of]; Z98.84 Bariatric surgery status
CPT/HCPCS: 99214; G2211

== ENCOUNTER → 2024-08-18 11:50 | Outpatient (BNVA) | payer OTHER, SELFPAY | PROVIDERS: PCP Internal Medicine; Visit Provider Physician Assistant Surgical ==

== ENCOUNTER 2024-11-25 13:11 | Outpatient (AMB) | payer OTHER, SELFPAY ==
--- NOTE | 2024-11-25 13:06 | A.OFFVIS_ITS ---
Intake Visit Reasons: TELELPHONE PO LAG 06/19/18 Allergies amoxicillin (AMOXICILLIN) Allergy (Unknown, Unverified 06/15/23 10:32) ABD PAIN carbamazepine (From TEGRETOL) Allergy (Unknown, Unverified 06/15/23 10:32) RASH imipramine (IMIPRAMINE) Allergy (Unknown, Unverified 06/15/23 10:32) SEIZURE, sz Medication List - Last Reconciled 11/25/24 by REED Govea progesterone micronized (Prometrium) 200 mg PO BEDTIME 5 days HPI Comments Details: This?is a?33?yo female who is s/p LSG 06/19/2018. Weight last time she checked in May was 363 pounds; weight today is 356 pounds.? No complaints of nausea, emesis, abdominal pain or reflux, or constipation. I tend to isolate a lot. When my grandfather I got the feeling people didn't think it was as significant as it was, we were very close. I'm trying to focus on me and my goals. Feels she has made some progress. Pt reports she continues to see her community therapist, also reports that she declines depression medications. Present meal plan includes: 3 Fairlife shakes, 1 meal protein/veg 8f/8f and Bahraini yogurt Exercise routine includes: 30min/day 5x/week encouraged at previous visits [facility] Medical History Adult BMI 60.0-69.9 kg/sq m Annual physical exam Anxiety Lower back pain Dysmenorrhea Rectal bleeding Obesity Morbid obesity Depression with anxiety Seizures Surgical History S/p bilateral myringotomy with tube placement S/P laparoscopic sleeve gastrectomy Family History Father Hypertension Diabetes Heart failure Mother Hypertension Maternal Grandmother Cancer of kidney Maternal Grandfather Hypertension Social History Housing: House Patient Tobacco Use Status: Never used Tobacco e-Cigarette/Vaping Use: Never Used Second Hand Smoke Exposure: No service: No Current occupational status: unemployed Current occupational exposures/hazards: No Cognitive needs: No Hearing needs: No Vision needs: No Telehealth Telehealth Telehealth Platform: Telephone Location of provider rendering services: practice address Location of patient: address on file Patient Identification confirmed using: Name, : Yes Telehealth method: voice only Patient verbally consented to treatment: Yes Patient verbally consented to billing insurance company: Yes Patient informed of any privacy concerns related to visit: Yes Minutes spent on Phone/Video with Pt.: 18 Assessment & Plan Assessment & Plan (1) Morbid obesity: Code(s): E66.01 - Morbid (severe) obesity due to excess calories Category: Medical (2) History of sleeve gastrectomy: Code(s): Z90.3 - Acquired absence of stomach [part of] Category: Surgical Plan I asked pt if there was anything I could help with to make her weight management journey more sustainable or change anything that was not going well for her; she does not have any suggestions at this time. Emphasized consistency over perfection. RTC 4mo.
--- OUTSIDE RECORDS SUMMARY | 2024-11-25 13:49 | XMS_ITS | Encounter Summary ---
Author Organization [facility] Address [address] [place] [phone] Phone Care Team Providers Care Sales Account Manager Name Role Phone Unavailable Primary Care Provider Unavailabl e Encounter Details Date Type Department Care Team (Late st Contact Info) Description 12/07/2016 Conversion Encounter [facility] - [address] [address] Social History Tobacco Use Types Packs/Day Years [...]
== END 2024-11-25 13:21 | disposition home or self-care (01) ==
LOC: HO.HBS 13:11
PROVIDERS: PCP Internal Medicine; Visit Provider Physician Assistant Surgical
DX: E66.01 Morbid (severe) obesity due to excess calories (principal); Z90.3 Acquired absence of stomach [part of]
CPT/HCPCS: 99214; G2211

== ENCOUNTER 2025-04-09 10:17 | Outpatient (AMB) | payer OTHER, SELFPAY ==
[2025-04-09 10:23] VITALS: BP 122/80; PULSE 69; RESP 16; TEMP 36.9; O2SAT 99; BMI 64.4
--- NOTE | 2025-04-09 10:23 | AM.OFFWIN_ITS ---
Intake Vital Signs 04/09/25 10:23 04/09/25 10:35 Height 5 ft 4 in Weight 375 lb BMI 64.4 BP 122/80 134/85 Blood Pressure Location Lt brachial Lt radial Position Sitting Sitting Respiration 16 Pulse 69 79 Pulse Source Pulse Oximeter Pulse Oximeter Temp 98.4 F Temp Source Oral Pulse Oximetry (%) 99 Oxygen Delivery Method Room Air Intake Visit Reasons: EP-High BP 146 over 107 Intake Note: denies chest pain, sporadically feels like she's struggling for breath Patient Tobacco Use Status: Never used Tobacco Allergies amoxicillin (AMOXICILLIN) Allergy (Unknown, Unverified 04/09/25 10:29) ABD PAIN carbamazepine (From TEGRETOL) Allergy (Unknown, Unverified 04/09/25 10:29) RASH imipramine (IMIPRAMINE) Allergy (Unknown, Unverified 04/09/25 10:29) SEIZURE, sz Do you need a note to return to daycare/school/sports/work: No HPI HPI Comments History of Present Illness Details History of Present Illness - The patient is a 34-year-old female pr esenting with elevated blood pressure and anxiety. - She began monitoring her blood pressur e at home about a week ago after waking up with dizziness, and the readings have been consistently high. - Home blood pressure readings with a wr ist BP cuff have been concerningly high, with values recorded as 186/121 mmHg and 216/153 mmHg. - The accuracy of these readings is ques tionable, as she was using multiple wrist cuffs, which can be inaccurate. - She did not seek emergency care for th rkista readings due to severe anxiety and difficulty leaving the house. - She denies associated symptoms of hype rtensive emergency such as blurry vision, double vision, head pounding, nausea, or chest pain. - The patient also reports episodes of f eeling like she cannot breathe and chest tightness, which occur in waves. - She states these episodes feel differe nt from her typical panic attacks, during which she hyperventilates. - She has a history of severe anxiety an d panic attacks, sees a therapist, and is not currently on any medication for these conditions. - The patient acknowledges a diet high i n salt and weight gain over the years. - Her family history is notable for hype rtension in her mother and a stroke in her father. - She has not seen her PCP in years. - She is currently seeing a therapist bu t she is not on medications. - She has not been sick. - She denies blurry vision, double visio n, leg edema or calf pain. Physical Exam General: Cooperative, healthy appearing, comfortable, no acute distress and well developed Orientation: Patient oriented x3 Limitations: No limitations Head: Normal to inspection Ears: Hearing grossly normal bilaterally Nose: Normal external nose present Face and sinus: Normal facial exam Eyes: Appearance normal, both eyes and all related structures Neck: Normal visual inspection and Yes full ROM. No thyromegaly noted. No carotid bruits noted. Respiratory: Normal respiratory effort and able to speak in complete sentences. Clear to auscultation bilaterally. No w/r/r noted Cardiovascular: Regular rate and rhythm. Normal S1 and S2. No m/r/g noted. GI: Normal to inspection. Soft to palpation and nontender. No guarding noted. Skin: No rashes or lesions noted. Neuro: Patient oriented x3 Extremities: Normal to inspection. No edema noted. Patient was informed and verbally consented to the use of an ambient scribe for clinic note documentation during this visit. [facility] Medical History Adult BMI 60.0-69.9 kg/sq m Annual physical exam Anxiety Lower back pain Dysmenorrhea Rectal bleeding Obesity Morbid obesity Depression with anxiety Seizures Surgical History S/p bilateral myringotomy with tube placement S/P laparoscopic sleeve gastrectomy Family History Father Hypertension Diabetes Heart failure Mother Hypertension Maternal Grandmother Cancer of kidney Maternal Grandfather Hypertension Social History Housing: House Patient Tobacco Use Status: Never used Tobacco e-Cigarette/Vaping Use: Never Used Second Hand Smoke Exposure: No service: No Current occupational status: unemployed Current occupational exposures/hazards: No Cognitive needs: No Hearing needs: No Vision needs: No Review of Systems Const All systems reviewed & are unremarkable except as noted in HPI and below Physical Exam Vital Signs: Last Vital Signs Temp 98.4 F 04/09/25 10:23 Pulse 79 04/09/25 10:35 Resp 16 04/09/25 10:23 BP 134/85 04/09/25 10:35 Pulse Ox 99 04/09/25 10:23 Oxygen Delivery Method Room Air 04/09/25 10:23 BMI result Body Mass Index 64.4 Assessment & Plan Assessment & Plan (1) Anxiety: Comment: Follows up with a therapist. Code(s): F41.9 - Anxiety disorder, unspecified (2) High blood pressure: Code(s): I10 - Essential (primary) hypertension Qualifiers: Hypertension type: unspecified Qualified Code(s): I10 - Essential (sharda cherry) hypertension Plan Most likely high blood pressure possibly due to anxiety vs obesity vs undiagnosed HTN plan 1. Hypertension - The patient presents with reports of significantly elevated home blood pressure readings, though their accuracy is questionable due to the use of a wrist cuff. - Since her in-office brachial blood pressure was normal (122/80 mmHg), antihypertensive medication will not be initiated today. - A prescription for an appropriately sized arm blood pressure cuff was provided to ensure accurate home monitoring. - Her primary care provider (PCP) will order a lab panel, including thyroid function, cholesterol, and liver/kidney function tests, to be completed before her next appointment. - She will follow up with her PCP on May 06 for further PE evaluation and management. - Advised to go to the ER if her BP is high and she has chest pain, SOB, SHAW, blurry vision, etc 2. Anxiety Disorder - The patient reports severe anxiety, and it is unclear if this is driving her blood pressure up or if the high readings are causing secondary anxiety. - The decision was made to defer starting medication, as the patient has a PCP appointment in two weeks to establish comprehensive care. - The patient will follow up with her PCP for management of her anxiety on May 06. Medications: New blood pressure kit-extra large As directed 1 ea 0RF Coding Level of Care Code Est Pt Level 4 (58714) Diagnoses Anxiety F41.9 Hypertension, unspecified type I10 Hypertension type: unspecified
[2025-04-09 10:35] VITALS: BP 134/85; PULSE 79
--- OUTSIDE RECORDS SUMMARY | 2025-04-09 12:41 | XMS_ITS | Encounter Summary ---
Author Organization [facility] Address [address] [place] [id number] Phone Care Team Providers Care Cluster Bore Operator Name Role Phone Unavailable Primary Care Provider Unavailabl e Encounter Details Date Type Department Care Team (Late st Contact Info) Description 12/07/2016 Conversion Encounter [facility] - [address] [id number] Social History Tobacco Use Types Packs/Day Years [...]
--- OUTSIDE RECORDS SUMMARY | 2025-04-09 12:42 | XMS_ITS | Clinical Summary ---
Author Organization [facility] Address [address] [place] [id number] Phone Care Team Providers Care Warp Tier Name Role Phone Unavailable Primary Care Provider [...] 71 02/02/2014 12:00 AM EDT Temperature 37.1 C (98.8 F) 02/05/2014 12:00 AM EDT Respiratory Rate - - Oxygen Saturation - [...] 02/04/2018 02/05/2008, 03/07/2004, 10/01/1997, Additional history exists HPV Vaccines (1 - 3-dose SCDM series) 09/09/2019 Influenza Vaccines (#1) 2024 COVID-19 Vaccine (2024- season) 2024 Hepatitis B Vaccines Completed 04/21/1993, 1992, 1992 HIB Vaccines Completed 12/15/1993, 03/25, 02/03/1993, Additional history exists IPV Vaccines Completed 10/01/1997, 10/1993, 02/03/1993, Additional history exists MMR Vaccines Completed 10/01/1997, 12/15/1993 Meningococcal Vaccine Aged Out 02/05/2008 No deisy lang eligible based on patient's age to complete this topic Varicella Vaccines Completed 02/05/2008, 10/01/1997 Hepatitis A Vaccines Aged Out No long er eligible based on patient's age to complete this topic Men B Vaccine Aged Out No longer elig ible based on patient's age to complete this topic Pneumococcal Vaccine Aged Out No long er eligible based on patient's age to complete this topic
== END 2025-04-09 12:00 | disposition home or self-care (01) ==
PROVIDERS: PCP Internal Medicine; Visit Provider Physician Assistant Medical
DX: F41.9 Anxiety disorder, unspecified (principal); I10 Essential (primary) hypertension

== ENCOUNTER → 2025-04-09 10:17 | Outpatient (BNVA) | payer OTHER, SELFPAY | PROVIDERS: PCP Internal Medicine; Visit Provider Physician Assistant Medical | DX: I10 Essential (primary) hypertension (principal); F41.9 Anxiety disorder, unspecified | CPT/HCPCS: 99212 ==